=== PATIENT | male | born 1945 | race American Indian/Alaskan Native ===

== ENCOUNTER 2021-10-04 07:18 | Emergency (ER) | payer MEDICARE ==
[2021-10-04 07:26] VITALS: BP 117/78
--- NOTE | 2021-10-04 07:41 | Emergency Department Report ---
ED Extremity Problem HPI - General Chief complaint: Extremity Problem,Nontraumatic Stated complaint: right leg pain Time Seen by Provider: 10/04/21 07:29 Source: patient Mode of arrival: Ambulatory Limitations: No Limitations - History of Present Illness Initial comments: 76-year-old male with a past medical history of hypertension, hypothyroidism, and underlying psych disorder presents to the ER today with complaints of anterior right knee pain. Patient states that his pain started couple days ago. He denies any particular injury or strenuous activity. He is unable to tell if there is any swelling to it. He denies any erythema or bruising. He states that he is never had this pain before in the past. He denies any known history of gout, or arthritis. He states that he bought some [id number] medication for pain but has not been helping. He reports no chest pain, shortness of breath, fever, chills, calf pain or any additional symptoms at this time MD Complaint: joint swelling, joint paint -: days(s) (2) - Related Data Previous Rx's Medication Instructions Recorded Last Taken Type Albuterol Mdi (or & Nicu Only) 2 puff IH QID PRN #1 inhalation 01/01/14 1 Day Ago Rx [ProAir HFA Inhaler] ~03/22/17 Albuterol Sulfate [Ventolin HFA] 2 puff IH Q4H PRN #1 hfa.aer.ad 05/24/14 1 Day Ago Rx ~03/22/17 Azithromycin [Zithromax Z-JAMIE] 250 mg PO DAILY #6 tablet 05/24/14 1 Day Ago Rx ~03/22/17 Triamcinolone Paste 0.1%(Nf) 1 applic DT Q4H PRN #5 gram 05/24/14 1 Day Ago Rx [Kenalog in Orabase (Nf)] ~03/22/17 Ondansetron [Zofran Odt] 4 mg PO Q8HR PRN #14 tab.rapdis 12/29/19 Unknown Rx oxyCODONE /ACETAMINOPHEN [Percocet 1 tab PO Q6HR PRN #10 tablet 12/29/19 Unknown Rx 5/325] Naproxen 500 mg PO BID #20 10/04/21 Unknown Rx Allergies Allergy/AdvReac Type Severity Reaction Status Date / Time No Known Allergies Allergy Verified 12/31/13 23:58 ED Review of Systems ROS: Stated complaint: right leg pain Other details as noted in HPI Comment: All other systems reviewed and negative Musculoskeletal: joint swelling, arthralgia ED Past Medical Hx - Past Medical History Hx Deep Vein Thrombosis: Yes Hx Psychiatric Treatment: Yes (ETOH abuse) Hx COPD: Yes Additional medical history: Chronic bronchitis, used to use inhalers. Right inguinal hernia - Surgical History Additional Surgical History: Left inguinal hernia repair - Social History Smoking Status: Never Smoker - Medications Home Medications: Home Medications Medication Instructions Recorded Confirmed Last Taken Type Albuterol Mdi (or & Nicu Only) 2 puff IH QID PRN #1 inhalation 01/01/14 03/23/17 1 Day Ago Rx [ProAir HFA Inhaler] ~03/22/17 Albuterol Sulfate [Ventolin HFA] 2 puff IH Q4H PRN #1 hfa.aer.ad 05/24/14 03/23/17 1 Day Ago Rx ~03/22/17 Azithromycin [Zithromax Z-JAMIE] 250 mg PO DAILY #6 tablet 05/24/14 03/23/17 1 Day Ago Rx ~03/22/17 Triamcinolone Paste 0.1%(Nf) 1 applic DT Q4H PRN #5 gram 05/24/14 03/23/17 1 Day Ago Rx [Kenalog in Orabase (Nf)] ~03/22/17 Ondansetron [Zofran Odt] 4 mg PO Q8HR PRN #14 tab.rapdis 12/29/19 Unknown Rx oxyCODONE /ACETAMINOPHEN [Percocet 1 tab PO Q6HR PRN #10 tablet 12/29/19 Unknown Rx 5/325] Naproxen 500 mg PO BID #20 10/04/21 Unknown Rx ED Physical Exam - General Limitations: No Limitations General appearance: alert, in no apparent distress - Head Head exam: Present: atraumatic, normocephalic, normal inspection - Respiratory Respiratory exam: Absent: respiratory distress - Cardiovascular Cardiovascular Exam: Present: regular rate - Expanded Lower Extremity Exam Right Knee exam: Present: full ROM (He has full range of motion but does have some pain.), tenderness (Point tenderness over the tibial tuberosity, and also patella tendon, and just medial to the patella tendon. Mild swelling noted over those areas. No apparent erythema, bruising or warmth noted.), full knee extension. Absent: abrasion, laceration, ecchymosis, deformity, crepidus, dislocation, effusion, pain w/ pronation/supination, posterior draw sign, pain/laxity with valgus, pain/laxity with varus Neuro vascular tendon exam: Present: no vascular compromise. Absent: motor deficit, sensory deficit, tendon deficit Gait: Positive: observed and limited by pain - Neurological Exam Neurological exam: Present: alert, oriented X3, CN II-XII intact - Psychiatric Psychiatric exam: Present: normal affect, normal mood - Skin Skin exam: Present: intact ED Course Vital Signs 10/04/21 07:22 Temperature 97.8 F Pulse Rate 73 Respiratory 16 Rate Blood Pressure 117/78 [Left] Critical care attestation.: If time is entered above; I have spent that time in minutes in the direct care of this critically ill patient, excluding procedure time. ED Disposition Clinical Impression: Knee pain, right Disposition: HOME / SELF CARE / HOMELESS Is pt being admited?: No Does the pt Need Aspirin: No Condition: Stable Instructions: Acute Knee Pain, Adult, Tendinitis, Arthritis Additional Instructions: Your pain could be related to arthritis or even a tendinitis. I recommend that you take the naproxen as prescribed to help with pain. Use Flash wrap as discussed. Elevate your leg as often as possible to help with any pain and swelling. Follow-up with orthopedics nurse listed on your discharge instructions in 1 week especially if your symptoms persist. Return to the ER if your symptoms worsens in any way. Prescriptions: Naproxen 500 mg PO BID #20 Referrals: DAYTON TEJADA MD [Staff Physician] - 3-5 Days Time of Disposition: 07:42
[2021-10-04] MEDS ORDERED: dexAMETHasone 20 MG/5 ML VIAL IM ONE (07:42)
[2021-10-04] MEDS ORDERED: IBUPROFEN 400 MG TAB PO ONE (07:42)
== END 2021-10-04 08:17 | disposition home or self-care (01) ==
LOC: ED 07:18
DX: M25.561 Pain in right knee (principal)
CPT/HCPCS: 99282; J1100